=== PATIENT | female | born 1995 | race Caucasian/White ===

== ENCOUNTER 2017-07-18 12:42 | Emergency (ER) | payer OTHER ==
[2017-07-18 12:53] VITALS: TEMP 98.2; BMI 28.1
[2017-07-18] MEDS ORDERED: ONDANSETRON *ODT* 4 MG TABLET SL ONE (13:59)
--- NOTE | 2017-07-18 14:06 | PDOC ---
History of Present Illness <Rebecca Yi - Last Filed: 07/18/17 14:01> - General History Source: Patient Exam Limitations: No Limitations - History of Present Illness Initial Comments: 07/18/17 15:44 Patient is a 22 year old female, 8 weeks , with a significant past medical history of who presents to the ED with complaints of Sore throat that began 3 days ago. Patient reports experiencing sore throat that began 3 days ago while at home. She reports experiencing runny nose, nausea and vomiting secondary to sore throat. Patient reports experiencing episodes of generalized myalgia. She reports going to PMD office where she was given test and tested positive. Denies dysuria, constipation, diarrhea. Denies abdominal pain, vaginal pain, vaginal bleeding. Allergies: None Social history: No smoking. No alcohol. No illicit drugs. Surgical history: None PMD: None <Jayesh Neri - Last Filed: 07/18/17 15:44> - General Chief Complaint: Vomiting/Diarrhea Stated Complaint: VOMITING (8 WKS ) Time Seen by Provider: 07/18/17 13:11 Past History - Past Medical History COPD: No - Suicide/Smoking/Psychosocial Hx Smoking History: Never smoked <Rebecca Yi - Last Filed: 07/18/17 14:01> <Jayesh Neri - Last Filed: 07/18/17 15:44> - Past Medical History Allergies/Adverse Reactions: Allergies Allergy/AdvReac Type Severity Reaction Status Date / Time No Known Allergies Allergy Verified 07/18/17 12:50 Home Medications: Ambulatory Orders Ondansetron [Zofran Odt -] 4 mg SL BID #7 od.tablet 07/18/17 Review of Systems - Review of Systems Able to Perform ROS?: Yes Comments:: 07/18/17 15:44 GENERAL: Awake, alert, and fully oriented, in no acute distress HEAD: No signs of trauma EYES: PERRLA, EOMI, sclera anicteric, conjunctiva clear ENT: Auricles normal inspection, hearing grossly normal, nares patent, oropharynx clear without exudates. Moist mucosa NECK: Normal ROM, supple, no lymphadenopathy, JVD, or masses LUNGS: Breath sounds equal, clear to auscultation bilaterally. No wheezes, and no crackles HEART: +Tachycardic noted at triage not noted on my exam. Regular rate and rhythm, normal S1 and S2, no murmurs, rubs or gallops ABDOMEN: Soft, nontender, normoactive bowel sounds. No guarding, no rebound. No masses EXTREMITIES: Normal range of motion, no edema. No clubbing or cyanosis. No cords, erythema, or tenderness NEUROLOGICAL: Cranial nerves II through XII grossly intact. Normal speech, SKIN: Warm, Dry, normal turgor, no rashes or lesions noted. <Jayesh Neri - Last Filed: 07/18/17 15:44> *Physical Exam - Vital Signs Last Vital Signs Temp Pulse Resp BP Pulse Ox 98.2 F 105 H 19 115/71 100 07/18/17 12:50 07/18/17 12:50 07/18/17 12:50 07/18/17 12:50 07/18/17 12:50 <Rebecca Yi - Last Filed: 07/18/17 14:01> - Vital Signs Last Vital Signs Temp Pulse Resp BP Pulse Ox 98.2 F 89 18 102/64 100 07/18/17 12:50 07/18/17 14:16 07/18/17 14:16 07/18/17 14:16 07/18/17 14:16 <Jayesh Neri - Last Filed: 07/18/17 15:44> ED Treatment Course - Medications Given in the ED: ED Medications Discontinued Medications Generic Name Dose Route Start Last Admin Trade Name Freq PRN Reason Stop Dose Admin Ondansetron HCl 4 mg 07/18/17 13:59 07/18/17 14:10 Zofran Odt - SL 07/18/17 14:00 4 mg ONCE ONE Administration <Jayesh Neri - Last Filed: 07/18/17 15:44> Medical Decision Making - Medical Decision Making 07/18/17 14:01 Pt presents to the ED complaining of nausea and vomiting, generalized malaise, runny nose and sore throat. Tolerating PO. Denies urinary complaints, abdominal pain or vaginal bleeding. Patient is 8 weeks by dates and wanted to know what she could take for her cold symptoms. I have informed her that she may take tylenol and I will prescribe zofran. Patient instructed to follow up with her OB within on week. <Rebecca Yi - Last Filed: 07/18/17 14:01> *DC/Admit/Observation/Transfer - Discharge Dispostion Admit: No Decision to Admit order Date/Time: 07/18/17 14:07 07/18/17 14:08 <Rebecca Yi - Last Filed: 07/18/17 14:01> - Attestations Scribe Attestion: 07/18/17 15:44 Documentation prepared by Jayesh Neri, acting as emergency medical service coordinator for Rebecca Yi MD, MD/DO. <Jayesh Neri - Last Filed: 07/18/17 15:44> Diagnosis at time of Disposition: Upper respiratory tract infection Qualifiers: URI type: unspecified URI Qualified Code(s): J06.9 - Acute upper respiratory infection, unspecified - Discharge Dispostion Disposition: HOME Condition at time of disposition: Good - Prescriptions Prescriptions: Ondansetron [Zofran Odt -] 4 mg SL BID #7 od.tablet - Patient Instructions Printed Discharge Instructions: DI for Viral Upper Respiratory Infection -- Adult Additional Instructions: Return to the ED for fever, severe abdominal pain, pain or burning with urination, vaginal bleeding, new or changing symptoms.
[2017-07-18] MEDS ORDERED: ONDANSETRON *ODT* 4 MG TABLET ONE (14:09)
[2017-07-18 14:17] VITALS: BP 102/64; PULSE 89
== END 2017-07-18 14:17 | disposition home or self-care (01) ==
LOC: JER 12:42
DX: O99.89 Other specified diseases and conditions complicating pregnancy, childbirth and the puerperium (principal); J06.9 Acute upper respiratory infection, unspecified; Z3A.08 8 weeks gestation of pregnancy
CPT/HCPCS: 99281-25

== ENCOUNTER 2022-06-21 08:59 | Emergency (ER) | payer OTHER ==
[2022-06-21 09:23] VITALS: BP 116/80; PULSE 83; RESP 18; TEMP 98.2; BMI 33.7
[2022-06-21] MEDS ORDERED: KETOROLAC TROMETHAMINE 30 MG/1 ML VIAL IM ONE (09:39)
[2022-06-21] MEDS ORDERED: ACETAMINOPHEN 500 MG TABLET (FP) PO ONE (09:39)
[2022-06-21] MEDS ORDERED: CYCLOBENZAPRINE HCL 10 MG TABLET (FP) PO ONE (09:39)
[2022-06-21] MEDS ORDERED: KETOROLAC TROMETHAMINE 30 MG/1 ML VIAL ONE (10:03)
[2022-06-21] MEDS ORDERED: ACETAMINOPHEN 500 MG TABLET (FP) ONE (10:03)
[2022-06-21] MEDS ORDERED: CYCLOBENZAPRINE HCL 10 MG TABLET (FP) ONE (10:03)
== END 2022-06-21 11:39 | disposition home or self-care (01) ==
LOC: JER 08:59
PROC: 3E0233Z Introduction of Anti-inflammatory into Muscle, Percutaneous Approach (ICD-10-PCS; principal; 2022-06-21)
DX: S16.1XXA Strain of muscle, fascia and tendon at neck level, initial encounter (principal); J20.9 Acute bronchitis, unspecified; X50.0XXA Overexertion from strenuous movement or load, initial encounter
CPT/HCPCS: 0241U-QW; 71046-TC-FY; 99284-25